=== PATIENT | female | born 1985 | race Caucasian/White ===

== ENCOUNTER 2019-03-25 18:20 | Emergency (ER) | payer MEDICAID, OTHER ==
[~2019-03-25] VITALS: Ht 165.1 cm; Wt 71.7 kg
[2019-03-25 18:29] VITALS: BP 144/89
[2019-03-25] MEDS ORDERED: methylPREDNISolone SOD SUCC 125 MG/2ML VIAL ONE (18:54)
[2019-03-25] MEDS ORDERED: methylPREDNISolone SOD SUCC 125 MG/2ML VIAL IM ONE (19:00)
== END 2019-03-25 19:03 | disposition home or self-care (01) ==
LOC: ER 18:23
DX: R21 Rash and other nonspecific skin eruption (principal)
CPT/HCPCS: 96372; 99283; J2930